=== PATIENT | male | born 1975 | race Caucasian/White ===

== ENCOUNTER 2020-10-01 13:06 | Emergency (ER) | payer OTHER ==
[~2020-10-01] VITALS: Ht 177.8 cm; Wt 93.0 kg
[2020-10-01] MEDS ORDERED: LANTUS SUBQ (13:23)
[2020-10-01] MEDS ORDERED: METFORMIN HCL500 M3 PO (13:23)
[2020-10-01 14:16] VITALS: BP 150/72
== END 2020-10-01 14:17 | disposition home or self-care (01) ==
LOC: M.ERS 13:06
DX: Z20.828 Contact with and (suspected) exposure to other viral communicable diseases (principal); E11.9 Type 2 diabetes mellitus without complications; Z90.49 Acquired absence of other specified parts of digestive tract; Z79.4 Long term (current) use of insulin